=== PATIENT | female | born 1980 ===

== ENCOUNTER 2022-04-17 22:41 | Inpatient (IN) | payer MEDICARE, OTHER ==
[2022-04-18] MEDS ORDERED: LORazepam 1 MG TAB PO PRN (05:43)
[2022-04-18] MEDS ORDERED: MAG HYDROX/AL HYDROX/SIMETH 30 ML CUP PO PRN (05:43)
[2022-04-18] MEDS ORDERED: LORazepam 2 MG/ML INJ IM PRN (05:45)
[2022-04-18] MEDS ORDERED: HALOPERIDOL LACTATE 5 MG/ML 1 ML VIAL IM PRN (05:46)
[2022-04-18 09:32] LABS: Appearance,Urine Clear (Clear); Bacteria,Urine Rare /hpf; Bilirubin,Urine Negative (Negative); Blood,Urine Small (Negative); Color,Urine Yellow; Glucose,Urine (UA) Negative (Negative); Ketones,Urine Negative (Negative); Leukocyte Esterase,Urine Negative (Negative); Mucus,Urine Many /hpf; Nitrite,Urine Negative (Negative); PH, Urine 6.5 (5.0-8.0); Protein,Urine Negative (Negative); RBC,Urine 2 /hpf (0-5); Specific Gravity,Urine 1.015 (1.001-1.035); Squamous Epithelial Cell,Urine 4 /hpf (0-4); Urobilinogen,Urine <2.0 mg/dL (<2.0)
--- NOTE | 2022-04-18 12:20 | P.HPMEDMHU ---
History of Present Illness H&P Date: 04/18/22 Chief Complaint: Patient transferred to [facility] for acute psychosis and manic be havior Patient is a 43-year-old patient with no significant past medical history and currently not taking any medications who was transferred from [facility] for acute psychosis and manic behavior. Patient states that she has positive energy and would like to use the energy to spend time with her family. She is currently denying any suicidal or homicidal idealization. She does not know why she has been admitted to the psych unit. Patient states that at the other hospital before giving her Ativan as needed. Review of Systems 10 ROS reviewed and are negative except as noted in HPI Past Medical History Smoking Status: Never smoker Medications and Allergies Allergies Allergy/AdvReac Type Severity Reaction Status Date / Time No Known Allergies Allergy Verified 04/18/22 05:42 Physical Exam Osteopathic Statement: *. No significant issues noted on an osteopathic structural exam other than those noted in the History and Physical/Consult. Vitals: Vital Signs Temp Pulse Resp BP 04/18/22 03:10 97.7 F 98 18 134/91 Intake and Output 04/17/22 04/18/22 04/18/22 22:59 06:59 14:59 Other: Weight 61.3 kg General: [Alert and oriented, well nourished, no acute distress]. Eye: [PERRL, EOMI, normal conjunctiva]. HENT: [Normocephalic, clear tympanic membranes, normal hearing, moist oral mucosa, no scleral icterus, no sinus tenderness]. Neck: [Supple, non-tender, no carotid bruits, no JVD, no lymphadenopathy]. Lungs: [Clear to auscultation and percussion, non-labored respiration]. Heart: [Normal rate, regular rhythm, no murmur, gallop or edema]. Abdomen: [Soft, non-tender, non-distended, normal bowel sounds, no masses]. Musculoskeletal: [Normal range of motion and strength, no tenderness or swelling]. Skin: [Skin is warm, dry and pink, no rashes or lesions]. Neurologic: [Awake, alert, and oriented X3, CN II-XII intact]. Psychiatric: [Cooperative, appropriate mood and affect]. Cranial Nerve Examination - Cranial Nerves Cranial Nerve II- Optic: Intact Cranial Nerve III- Oculomotor: Intact Cranial Nerve IV- Trochlear: Intact Cranial Nerve V- Trigeminal: Intact Cranial Nerve - Abducens: Intact Cranial Nerve VII- Facial: Intact Cranial Nerve VIII- Auditory: Intact Cranial Nerve IX- Glossopharyngeal: Intact Cranial Nerve X- Vagus: Intact Cranial Nerve XI- Accessory: Intact Cranial Nerve XII- Hypoglossal: Intact Results Labs: Abnormal Lab Results - Last 24 Hours (Table) 04/18/22 Range/Units 09:03 Urine Blood Small H (Negative) Urine Bacteria Rare H (None) /hpf Urine Mucus Many H (None) /hpf Thrombosis Risk Factor Assmnt - Choose All That Apply Any of the Below Risk Factors Present?: No Other Risk Factors: No Other congenital or acquired thrombophilia - If yes, enter type in comment: No Thrombosis Risk Factor Assessment Level: Very Low Risk Assessment and Plan Assessment: Acute psychosis and manic behavior -Your psych management Thank you for the consult please do not hesitate to call us with any questions!
--- NOTE | 2022-04-18 21:27 | P.PN ---
Progress Note - Text Progress Note Date: 04/18/22 IDENTIFYING DATA: Patient is a 41 year old female who was transferred to [facility] from [facility] where she stayed for seven days due to psychosis. HPI: Patient presented to the hospital as a transfer from [facility]. She reports she was taken to the hospital by a police pilot. She reports she was at her aunt's house and her aunt's boyfriend called the police on her because she was there early in the morning to visit her cat (cat recently and is buried in the backyard). She reports she was talking fast to the police (she normally talks fast) and was wearing 2 hoodies in 80 degree heat (she says this was early in the morning and she recently moved and these are the clothes she had in her car). Her speech appears pressured at first, but when asked to slow down she can. She reports she has talked fast her entire life. Her thought process is circumstantial, her mood is pleasant. She reports she is so happy because she is "in love", and she reconnected with an old friend recently. Patient denies any suicidal or homicidal ideations intent or plan. At this time patient denies any auditory or visual hallucinations. Patient denies any flight of ideas, racing thoughts, and increased in goal directed behavior, denies increased spending. She denies alcohol use, except for maybe one drink per year. She denies drug use. She denies tobacco use. She reports she is prescribed Adderall 30 mg TID for her ADHD, and she has been tapering off to 30 mg BID, but she has not received the Adderall for the past week while being hospitalized at [facility]. PAST PSYCHIATRIC HISTORY: Patient states that she is diagnosed with ADD, "narcolepsy", anxiety. She denies having bipolar disorder. Patient reports taking Adderall but reports she and her mother are trying to wean her off of it. She reports she has taken Benadryl for anxiety. Previous psychiatric hospitalizations: 3 times including [facility], [place], and one hospital in [place]. Psychiatric outpatient follow-up: [facility]. Patient denies any history of suicide attempts in the past. PMH: Has a history of knee surgery. ALLERGIES: as per EMR CHEMICAL DEPENDENCY HISTORY: as per HPI FAMILY PSYCHIATRIC/SUBSTANCE USE HISTORY: Denies SOCIAL HISTORY: Patient was born in [facility] and raised in [place] and in [place]. Parents . Father lives in [place], and mother (Liz Taylor) lives in [place] (mother [phone], aunt [phone]). Denies history of abuse. Never , no children. Graduated high school, did 3 years in college. Unemployed currently. 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 MENTAL STATUS EXAM: General Appearance: Patient appears to be stated age, short hair, fair hygiene, dressed in hospital gown. Orientation: She is alert, oriented to person, place, time and situation. Behavior: Patient is seated without any agitated behavior. Speech: Patient's speech is fluent, rapid in rate and increased in volume. Mood/Affect: Patient reports their mood is good, affect is congruent and broad. Suicidality/Homicidality: Patient denies having any homicidal ideation intent or plan. Denies any suicidal ideations intent or plan. Perceptions: Patient denies any visual hallucinations and denies any auditory hallucinations. Though content/process: There is no evidence of any delusional thought content and thought process is linear and goal-directed. Memory and concentration: Grossly intact for the purposes of this session. Can spell "WORLD" backwards. Judgment and insight: Good STRENGTHS/WEAKNESSES: Strength is that patient is resilient. Weakness is that patient has poor judgment and is impulsive. INTELLECT: Average IMPRESSIONS: Unspecified mood disorder Unspecified anxiety disorder ADHD, primarily inattentive PLAN: -Patient is admitted under involuntary status to [facility] for stabilization of psychiatric symptoms and safety. Patient has signed adult voluntary form and medication consent and is placed in patient's chart. -Medications: Will start patient on Benadryl 50 mg QHS PRN for sleep. This is what she agrees to take at this time. Will readdress medications with her tomorrow. -Ativan and Haldol PRN for agitation/aggression -Patient was informed of the risks, benefits and side effects of the medication and patient verbally consented to taking the medications. Patient signed med consent form and was placed in chart. -Internal Medicine consult to perform medical evaluation and physical. -NRT - does not smoke -SW on board for discharge planning. Encourage patient to participate in groups to work on coping skills. []
[2022-04-19] MEDS: diphenhydrAMINE 50 MG CAP PO PRN (02:16)
[2022-04-19] MEDS: ACETAMINOPHEN TAB 325 MG TAB PO PRN ×2 (02:16→15:42)
[2022-04-19 17:08] LABS: LDL Cholesterol,Calculated 76.6 mg/dL (0.0-131.0); VLDL Calculation 15.22 mg/dL (5.00-40.00)
--- NOTE | 2022-04-19 20:19 | P.HP ---
Psychiatric H&P - . H&P Date: 04/18/22 History & Physical: IDENTIFYING DATA: Patient is a 41 year old female who was transferred to [facility] from [facility] where she stayed for seven days due to psychosis. HPI: Patient presented to the hospital as a transfer from [facility]. She reports she was taken to the hospital by a police reserves commander. She reports she was at her aunt's house and her aunt's boyfriend called the police on her because she was there early in the morning to visit her cat (cat recently and is buried in the backyard). She reports she was talking fast to the police (she normally talks fast) and was wearing 2 hoodies in 80 degree heat (she says this was early in the morning and she recently moved and these are the clothes she had in her car). Her speech appears pressured at first, but when asked to slow down she can. She reports she has talked fast her entire life. Her thought process is circumstantial, her mood is pleasant. She reports she is so happy because she is "in love", and she reconnected with an old friend recently. Patient denies any suicidal or homicidal ideations intent or plan. At this time patient denies any auditory or visual hallucinations. Patient denies any flight of ideas, racing thoughts, and increased in goal directed behavior, denies increased spending. She denies alcohol use, except for maybe one drink per year. She denies drug use. She denies tobacco use. She reports she is prescribed Adderall 30 mg TID for her ADHD, and she has been tapering off to 30 mg BID, but she has not received the Adderall for the past week while being hospitalized at [facility]. PAST PSYCHIATRIC HISTORY: Patient states that she is diagnosed with ADD, "narcolepsy", anxiety. She denies having bipolar disorder. Patient reports taking Adderall but reports she and her mother are trying to wean her off of it. She reports she has taken Benadryl for anxiety. Previous psychiatric hospitalizations: 3 times including [facility], [place], and one hospital in [place]. Psychiatric outpatient follow-up: sees psychiatrist at [facility] and [facility]. Patient denies any history of suicide attempts in the past. PMH: Has a history of knee surgery. ALLERGIES: as per EMR CHEMICAL DEPENDENCY HISTORY: as per HPI FAMILY PSYCHIATRIC/SUBSTANCE USE HISTORY: Denies SOCIAL HISTORY: Patient was born in [facility] and raised in [place] and in [place]. Parents . Father lives in [place], and mother (Liz Taylor) lives in [place] (mother [phone], aunt [phone]). Denies history of abuse. Never , no children. Graduated high school, did 3 years in college. Unemployed currently. 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 MENTAL STATUS EXAM: General Appearance: Patient appears to be stated age, short hair, fair hygiene, dressed in hospital gown. Orientation: She is alert, oriented to person, place, time and situation. Behavior: Patient is seated without any agitated behavior. Speech: Patient's speech is fluent, rapid in rate and increased in volume. Mood/Affect: Patient reports their mood is good, affect is congruent and broad. Suicidality/Homicidality: Patient denies having any homicidal ideation intent or plan. Denies any suicidal ideations intent or plan. Perceptions: Patient denies any visual hallucinations and denies any auditory hallucinations. Though content/process: There is no evidence of any delusional thought content and thought process is linear and goal-directed. Memory and concentration: Grossly intact for the purposes of this session. Can spell "WORLD" backwards. Judgment and insight: Good STRENGTHS/WEAKNESSES: Strength is that patient is resilient. Weakness is that patient has poor judgment and is impulsive. INTELLECT: Average IMPRESSIONS: Unspecified mood disorder Unspecified anxiety disorder ADHD, primarily inattentive PLAN: -Patient is admitted under involuntary status to [facility] for stabilization of psychiatric symptoms and safety. Patient has signed adult voluntary form and medication consent and is placed in patient's chart. -Medications: Will start patient on Benadryl 50 mg QHS PRN for sleep. This is what she agrees to take at this time. Will readdress medications with her tomorrow. -Ativan and Haldol PRN for agitation/aggression -Patient was informed of the risks, benefits and side effects of the medication and patient verbally consented to taking the medications. Patient signed med consent form and was placed in chart. -Internal Medicine consult to perform medical evaluation and physical. -NRT - does not smoke -SW on board for discharge planning. Encourage patient to participate in groups to work on coping skills. [] Allergies Allergy/AdvReac Type Severity Reaction Status Date / Time No Known Allergies Allergy Verified 04/18/22 13:31 Vital Signs Temp 97.7 F 04/18/22 03:10 Pulse 98 04/18/22 03:10 Resp 18 04/18/22 03:10 BP 134/91 04/18/22 03:10 Pulse Ox FiO2 Laboratory Last Values Estimated Ave Glu mg/dL 116 04/19/22 09:32 Hemoglobin A1c 5.7 % (0.0-6.0) 04/19/22 09:32 Triglycerides 76.10 mg/dL (0.00-149.00) 04/19/22 09:32 Cholesterol 153.00 mg/dL (0.00-200.00) 04/19/22 09:32 LDL Cholesterol, Calc 76.6 mg/dL (0.0-131.0) 04/19/22 09:32 VLDL Cholesterol, Calc 15.22 mg/dL (5.00-40.00) 04/19/22 09:32 HDL Cholesterol 61.20 mg/dL (40.00-60.00) H 04/19/22 09:32 Cholesterol/HDL Ratio 2.50 Ratio 04/19/22 09:32 TSH 1.440 mIU/L (0.465-4.680) 04/19/22 09:32 Urine Color Yellow 04/18/22 09:03 Urine Appearance Clear (Clear) 04/18/22 09:03 Urine pH 6.5 (5.0-8.0) 04/18/22 09:03 Ur Specific [place] 1.015 (1.001-1.035) 04/18/22 09:03 Urine Protein Negative (Negative) 04/18/22 09:03 Urine Glucose (UA) Negative (Negative) 04/18/22 09:03 Urine Ketones Negative (Negative) 04/18/22 09:03 Urine Blood Small (Negative) H 04/18/22 09:03 Urine Nitrite Negative (Negative) 04/18/22 09:03 Urine Bilirubin Negative (Negative) 04/18/22 09:03 Urine Urobilinogen <2.0 mg/dL (<2.0) 04/18/22 09:03 Ur Leukocyte Esterase Negative (Negative) 04/18/22 09:03 Urine RBC 2 /hpf (0-5) 04/18/22 09:03 Ur Squamous Epith Cells 4 /hpf (0-4) 04/18/22 09:03 Urine Bacteria Rare /hpf (None) H 04/18/22 09:03 Urine Mucus Many /hpf (None) H 04/18/22 09:03 04/18/22
--- NOTE | 2022-04-19 20:59 | P.PN ---
Progress Note - Text Progress Note Date: 04/19/22 Interval History: Patient was seen watching TV and was directable and agreeable to speak with commercial underwriter in the office. She continues to present with manic symptoms including elevated mood, pressured speech, flight of ideas, high energy despite poor sleep, slept only 2 hours last night and 4 hours the night before, some grandiose ideations and references to being in love. She insists she is not manic and that she talks fast at baseline. She insists on calling her mother so her mother can give history that she is not manic, but no answer on multiple attempts. She declines starting a psychotropic medications, insists on taking on Benadryl or Ativan, but eventually agrees to take Zyprexa. At this time patient denies any suicidal or homical ideations, intent or plan. Patient denies any auditory, visual hallucinations and denies any paranoia or delusions. Patient denies any side effects from the medications. Mental Status Exam: General Appearance: Patient appears to be stated age, short messy haircut, dressed in bright sweatshirt over hospital gown. Orientation: She is alert, oriented to person, place, time and situation. Behavior: Patient is seated without any agitated behavior. Speech: Patient's speech is pressured and difficult to interrupt. Mood/Affect: Mood is elevated, affect is broad. Suicidality/Homicidality: Patient denies having any suicidal or homicidal ideation intent or plan. Perceptions: Patient denies any visual hallucinations and denies any auditory hallucinations. Though content: There is some evidence of grandiose delusional thought content. Thought process: Flight of ideas. Memory and concentration: Grossly intact for the purposes of this session Judgment and insight: Improving mildly Assessment Bipolar 1 Disorder, current episode manic Plan: -Patient continues to meet criteria for inpatient psychiatric admission for symptom stabilization and safety. Patient has signed adult voluntary form and medication consent and was placed in patient's chart. -Medications: Start Zyprexa 5 mg QHS for mood stabilization. Patient is declining other medications at this time but is agreeable to taking Zyprexa tonight. -When necessary Ativan and Haldol for agitation/aggression. -NRT - nicotine patch -SW on board for discharge planning. Encouraged the patient to participate in milieu. []
[2022-04-19] MEDS: OLANZapine ODT 5 MG TAB PO SCH (21:48)
[2022-04-20] MEDS: ACETAMINOPHEN TAB 325 MG TAB PO PRN ×2 (00:13→20:22)
[2022-04-20] MEDS: diphenhydrAMINE 50 MG CAP PO PRN ×3 (00:13→20:21)
--- NOTE | 2022-04-20 11:49 | P.PN ---
Progress Note - Text Progress Note Date: 04/20/22 Interval History: Patient was seen wandering the hallways today and was speaking to another kirk ent on the unit. She claims that she is doing a bit better with the medications and appears to be more directable during conversation. Improvement in flight of ideas and distractibility. Her speech is also improving and was not rambling today. We spoke about the medications and the side effects and she states that she will continue taking it. She states that her mood and anxiety been improvin g. She states that she did have restless leg symptoms last night and found it difficult to sleep. She needed Benadryl to sleep last night. At this time patient denies any suicidal or homical ideations, intent or plan. Patient denies any auditory, visual hallucinations and denies any paranoia or delusions. Patient denies any side effects from the medications. Mental Status Exam: General Appearance: Patient appears to be stated age, short messy haircut, dressed in bright sweatshirt over hospital gown. Behavior: Patient is seated without any agitated behavior. Our directable today. Speech: Patient's speech is improving in terms of rate. Mood/Affect: Mood is elevated, affect is broad. Suicidality/Homicidality: Patient denies having any suicidal or homicidal ideation intent or plan. Perceptions: Patient denies any visual hallucinations and denies any auditory hallucinations. Though content: There is some evidence of grandiose delusional thought content. Thought process: Flight of ideas, improving. More logical today and goal oriented. Memory and concentration: Grossly intact for the purposes of this session Judgment and insight: Improving mildly Assessment Bipolar 1 Disorder, current episode manic Plan: -Patient continues to meet criteria for inpatient psychiatric admission for symptom stabilization and safety. Patient has signed adult voluntary form and medication consent and was placed in patient's chart. -Medications: Zyprexa 5 mg QHS for mood stabilization. added requip 0.25 mg qhs for restless leg symptoms. benadryl prn for sleep. -When necessary Ativan and Haldol for agitation/aggression. -NRT - nicotine patch -SW on board for discharge planning. Encouraged the patient to participate in milieu. likely discharge in 1-2 days.
[2022-04-20] MEDS: OLANZapine ODT 5 MG TAB PO SCH (20:22)
--- NOTE | 2022-04-21 11:50 | P.PN ---
Progress Note - Text Progress Note Date: 04/21/22 Interval History: Patient was seen wandering the hallways today and was speaking to another kirk ent on the unit. She appears to be more directable today and claims that she is doing better today. She states that her mood is gtaduallly improving along with her anxiety. She states that she is going to groups and talking with other people on the unit. Continues to be superficial aat times about her treatment. Insight and judgment improving mildly. Her speech is also improving and was not rambling today. We spoke about the medications and the side effects and she states that she will continue taking it. she claims that her sleep is improving midlly. At this time patient denies any suicidal or homical ideations, intent or plan. Patient denies any auditory, visual hallucinations and denies any paranoia or delusions. Patient denies any side effects from the medications. no restless leg symptoms last night. Mental Status Exam: General Appearance: Patient appears to be stated age, short messy haircut, dressed in bright sweatshirt over hospital gown. Behavior: Patient is seated without any agitated behavior. directable today. Speech: Patient's speech is improving in terms of rate Mood/Affect: Mood is elevated, affect is broad Suicidality/Homicidality: Patient denies having any suicidal or homicidal ideation intent or plan. Perceptions: Patient denies any visual hallucinations and denies any auditory hallucinations. Though content: There is some evidence of grandiose delusional thought content. Thought process: More logical today and goal oriented. not delusional today. rambling at times. Memory and concentration: Grossly intact for the purposes of this session Judgment and insight: Improving mildly Assessment Bipolar 1 Disorder, current episode manic Plan: -Patient continues to meet criteria for inpatient psychiatric admission for symptom stabilization and safety. Patient has signed adult voluntary form and medication consent and was placed in patient's chart. -Medications: Zyprexa 5 mg QHS for mood stabilization. Requip 0.25 mg qhs for restless leg symptoms. benadryl prn for sleep. -When necessary Ativan and Haldol for agitation/aggression. -NRT - nicotine patch -SW on board for discharge planning. Encouraged the patient to participate in milieu. Likely discharge tomorrow morning back with mother. Sw to reach out to mother today to arrange discharge.
[2022-04-21] MEDS: ACETAMINOPHEN TAB 325 MG TAB PO PRN (16:10)
[2022-04-21] MEDS: OLANZapine ODT 5 MG TAB PO SCH (20:11)
[2022-04-21] MEDS: diphenhydrAMINE 50 MG CAP PO PRN (20:12)
[2022-04-22 07:26] VITALS: BP 115/77; PULSE 87; RESP 16; TEMP 97.6
[2022-04-22] MEDS: ACETAMINOPHEN TAB 325 MG TAB PO PRN (09:00)
--- NOTE | 2022-04-22 11:29 | P.DS ---
Providers Date of admission: 04/18/22 03:10 Expected date of discharge: 04/22/22 Attending physician: Henry Mckeon MD Consults: 04/18/22 05:43 Consult Physician Routine Consulting Provider: Cruz Paulino Consult Reason/Comments: H&P for mental health admission Do you want consulting provider notified?: Yes Primary care physician: Stated None - Discharge Diagnosis(es) (1) Bipolar disorder current episode depressed Current Visit: Yes Status: Acute Priority: High Hospital Course: Admission HPI: Admission note was completed by Dr Gamino "Patient is a 41 year old female who was transferred to [facility] from [facility] where she stayed for seven days due to psychosis. Patient presented to the hospital as a transfer from [facility]. She reports she was taken to the hospital by a police manager. She reports she was at her aunt's house and her aunt's boyfriend called the police on her because she was there early in the morning to visit her cat (cat recently and is buried in the backyard). She reports she was talking fast to the police (she normally talks fast) and was wearing 2 hoodies in 80 degree heat (she says this was early in the morning and she recently moved and these are the clothes she had in her car). Her speech appears pressured at first, but when asked to slow down she can. She reports she has talked fast her entire life. Her thought process is circumstantial, her mood is pleasant. She reports she is so happy because she is "in love", and she reconnected with an old friend recently. Patient denies any suicidal or homicidal ideations intent or plan. At this time patient denies any auditory or visual hallucinations. Patient denies any flight of ideas, racing thoughts, and increased in goal directed behavior, denies increased spending. She denies alcohol use, except for maybe one drink per year. She denies drug use. She denies tobacco use. She reports she is prescribed Adderall 30 mg TID for her ADHD, and she has been tapering off to 30 mg BID, but she has not received the Adderall for the past week while being hospitalized at [facility]." Hospital course: Upon admission to the unit patient was directable and agreeable to commence treatment and signed adult voluntary form . Patient got along well with other patients on the unit and followed unit protocol. Patient was compliant with the medications and denied any side effects throughout hospital course. Patient was started on Zyprexa 5 mg daily at bedtime for mood stabilization, Requip 0.25 mg daily at bedtime for restless leg symptoms, Benadryl when necessary for sleep. Patient spoke of his stressors and engaged in therapy both group and individual. Patient was also seen by medical team for history and physical exam. Throughout the course of the hospitalization patient gradually improved with regards to mood, anxiety, sleep and returned back to their baseline level of functioning. On the day of discharge patient denied any suicidal or homicidal ideations intent or plan denied any auditory or visual hallucinations. Patient endorsed wanting to live for her health and her family. The patient denied any access to guns or weapons. Patient denied any paranoia and did not endorse any delusions. Patient does not have a significant history of substance abuse and was counseled on abstaining from all substances including alcohol and marijuana. Patient was also counseled on the medications and need for regular compliance and was encouraged to follow-up with their outpatient appointment for mental health and also for primary care. Prior to discharge a family meeting will be arranged by social media coordinator to answer any questions and ensure safety upon discharge. Mental status exam: General Appearance: Patient appears to be have short hair, stated age is alert, pleasant, and cooperative. Patient is in no acute distress and has improved hygiene and grooming Behavior: Patient is calmly seated without any agitated behavior. Speech: Patient's speech is fluent and nonpressured. Mood/Affect: Patient reports their mood is "ok", affect is congruent and euthymic. Suicidality/Homicidality: Patient denies having any suicidal or homicidal ideation intent or plan. Perceptions: Patient denies any auditory or visual hallucinations. Though content/process: There is no evidence of any delusional thought content and thought process is linear and goal-directed. more future oriented Memory and concentration: AOX3, grossly intact for the purposes of this session. Can spell "WORLD" backwards correctly. Judgment and insight: improved with guarded prognosis Impression: Bipolar disorder, current episode depressed Plan: -Continue with discharge today as patient has improved and stabilized psychiatrically and is not currently an imminent threat to herself and/or others. -Continue medications: Zyprexa 5 mg daily at bedtime for mood stabilization/psychosis. Requip 0.25 mg daily at bedtime for restless leg symptoms, Benadryl when necessary for sleep. -Patient was counseled on the need for medication compliance and appropriate follow-up at mental health and also primary care for medical issues. Patient verbalized understanding and agreed. -Social work to arrange for and conduct family meeting to ensure safety upon discharge and answer any questions/concerns. Social work also to arrange for patients follow up appointments for psychiatric care along with follow up with primary care provider. -Patient counseled on abstaining from recreational drugs and marijuana and alcohol. Was informed/educated on the adverse effects on their physical and mental health. Patient verbally agreed and understood. -Patient was instructed to return to the hospital or seek immediate medical care if their psychiatric or medical symptoms do worsen or reoccur. Allergies Allergy/AdvReac Type Severity Reaction Status Date / Time No Known Allergies Allergy Verified 04/18/22 13:[address] Glu mg/dL 116 04/19/22 09:32 Hemoglobin A1c 5.7 % (0.0-6.0) 04/19/22 09:32 Triglycerides 76.10 mg/dL (0.00-149.00) 04/19/22 09:32 Cholesterol 153.00 mg/dL (0.00-200.00) 04/19/22 09:32 LDL Cholesterol, Calc 76.6 mg/dL (0.0-131.0) 04/19/22 09:32 VLDL Cholesterol, Calc 15.22 mg/dL (5.00-40.00) 04/19/22 09:32 HDL Cholesterol 61.20 mg/dL (40.00-60.00) H 04/19/22 09:32 Cholesterol/HDL Ratio 2.50 Ratio 04/19/22 09: TSH 1.440 mIU/L (0.465-4.680) 04/19/22 09:32 Urine Color Yellow 04/18/22 09: Urine Appearance Clear (Clear) 04/18/22 09: Urine pH 6.5 (5.0-8.0) 04/18/22 09:03 Ur Specific [place] 1.015 (1.001-1.035) 04/18/22 09:03 Urine Protein Negative (Negative) 04/18/22 09:03 Urine Glucose (UA) Negative (Negative) 04/18/22 09:03 Urine Ketones Negative (Negative) 04/18/22 09:03 Urine Blood Small (Negative) H 04/18/22 09:03 Urine Nitrite Negative (Negative) 04/18/22 09:03 Urine Bilirubin Negative (Negative) 04/18/22 09:03 Urine Urobilinogen <2.0 mg/dL (<2.0) 04/18/22 09:03 Ur Leukocyte Esterase Negative (Negative) 04/18/22 09:03 Urine RBC 2 /hpf (0-5) 04/18/22 09:03 Ur Squamous Epith Cells 4 /hpf (0-4) 04/18/22 09:03 Urine Bacteria Rare /hpf (None) H 04/18/22 09:03 Urine Mucus Many /hpf (None) H 04/18/22 09:03 Vital Signs Temp 97.6 F 04/22/22 06:33 Pulse 87 04/22/22 06:33 Resp 16 04/22/22 06:33 BP 115/77 04/22/22 06:33 Pulse Ox FiO2 Patient Condition at Discharge: Stable Plan - Discharge Summary Discharge Rx Participant: No New Discharge Prescriptions: New diphenhydrAMINE [Benadryl] 50 mg PO HS PRN 30 Days cap PRN Reason: Insomnia rOPINIRole HCL [Requip] 0.25 mg PO HS 30 Days tab OLANZapine [ZyPREXA] 5 mg PO HS 30 Days tablet Discontinued Dextroamphetamine/Amphetamine [Adderall] 30 mg PO TID Discharge Medication List OLANZapine [ZyPREXA] 5 mg PO HS 30 Days tablet 04/22/22 [Rx] diphenhydrAMINE [Benadryl] 50 mg PO HS PRN 30 Days cap 04/22/22 [Rx] rOPINIRole HCL [Requip] 0.25 mg PO HS 30 Days tab 04/22/22 [Rx] Discharge Disposition: HOME SELF-CARE
== END 2022-04-22 14:22 | disposition home or self-care (01) | DRG 885 ==
LOC: 3MHU 04-18 03:10
PROVIDERS: ADMIT Psychiatry & Neurology Psychiatry; ATTEND Psychiatry & Neurology Psychiatry
DX: F31.9 Bipolar disorder, unspecified (principal); F41.9 Anxiety disorder, unspecified; F90.0 Attention-deficit hyperactivity disorder, predominantly inattentive type; G25.81 Restless legs syndrome; G47.419 Narcolepsy without cataplexy; Z71.89 Other specified counseling; Z28.21 Immunization not carried out because of patient refusal
CPT/HCPCS: 80061; 81001; 83036; 84443